=== PATIENT | female | born 1970 | race Caucasian/White ===

== ENCOUNTER 2017-01-06 10:34 | Day surgery (SDC) | payer BC ==
[2017-01-05 09:18] VITALS: BMI 30.9
--- NOTE | 2017-01-06 09:59 | P.GSHP ---
History of Present Illness H&P Date: 01/06/17 Chief Complaint: GERD, abdominal pain Patient here today for upper endoscopy. She's been having complaints of upper abdominal pain and reflux. Mild dysphagia. She did have a prior esophagram for evaluation of dysphagia and 2014 which was normal. Past Medical History Past Medical History: No Reported History History of Any Multi-Drug Resistant Organisms: None Reported Past Surgical History: Cholecystectomy, Orthopedic Surgery Additional Past Surgical History / Comment(s): colon resection, bunionectomy, spurs; EGD Past Anesthesia/Blood Transfusion Reactions: No Reported Reaction Smoking Status: Current every day smoker - Past Family History Father Family Medical History: Deep Vein Thrombosis (DVT) Sister(s) Family Medical History: Cancer Medications and Allergies Home Medications Medication Instructions Recorded Confirmed Type Calcium Carbonate [Tums] 1,500 - 2,000 mg PO DAILY PRN 05/17/16 01/05/17 History HYDROcodone/APAP 5-325MG [[place] 1 tab PO Q4H PRN 05/17/16 01/05/17 History 5-325] Pantoprazole Sodium [Protonix] 40 mg PO BID 05/17/16 01/05/17 History Diclofenac Potassium [Cataflam] 50 mg PO BID 01/05/17 01/05/17 History Magnesium 200 mg PO DAILY 01/05/17 01/05/17 History Phentermine HCl [Adipex-P] 37.5 mg PO QAM 01/05/17 01/05/17 History Zinc 50 mg PO DAILY 01/05/17 01/05/17 History Allergies Allergy/AdvReac Type Severity Reaction Status Date / Time No Known Allergies Allergy Verified 01/05/17 09:10 Surgical - Exam Physical exam: General: Well-developed, well-nourished HEENT: Normocephalic, sclerae nonicteric Abdomen: Nontender, nondistended Extremities: No edema Neuro: Alert and oriented Assessment and Plan (1) GERD (gastroesophageal reflux disease) Narrative/Plan: Will proceed with upper endoscopy at this time. Status: Acute
[~2017-01-06 10:34] MED LIST: LACTATED RINGERS 1,000 ML IV SCH
[2017-01-06] MEDS ORDERED: LIDOCAINE 1% 20 ML VIAL (10MG/ML) FOR IV START INTRADERMA ONE (10:42)
[2017-01-06 10:49] VITALS: RESP 16; TEMP 97.7
[2017-01-06] MEDS ORDERED: PROPOFOL 10 MG/ML 20 ML VIAL IV ONE (10:57)
--- NOTE | 2017-01-06 11:09 | P.PCN ---
Date of Procedure: 01/06/17 Preoperative Diagnosis: Postoperative Diagnosis: Procedure(s) Performed: Preoperative Dx: Abdominal pain, GERD Postoperative Dx: Mild gastritis, small hiatal hernia Procedure: EGD with Bx Anesthesia: Sedation Endoscopist: Dr. Sheth Specimens: Antrum, body Endoscopic Procedure: The patient was on the endoscopy table in the left decubitus position. The Olympus gastroscope was inserted into the oropharynx and passed under direct visualization to the region of the third portion of the duodenum. From that point the scope was slowly withdrawn inspecting all surfaces carefully. There were no neoplastic inflammatory or polypoid lesions throughout the duodenum. The pylorus was widely patent. The stomach was carefully inspected. There was mild gastritis present. A biopsy of the mid body of the stomach took place where there was some thickened rugae. A biopsy of the antrum took place to rule out H. pylori. Retroflexion revealed a small sliding hiatal hernia. The esophagus was then carefully examined. There were no neoplastic inflammatory or polypoid lesions throughout the visualized esophagus. The patient was then taken to the recovery room in stable condition per anesthesia guidelines. Recommendations: Continue antiacid therapy. Await biopsy results. Implants: Indications for Procedure: Operative Findings: Description of Procedure:
[2017-01-06 11:43] VITALS: PULSE 64
[2017-01-06 11:56] VITALS: BP 118/84
== END 2017-01-06 12:10 | disposition home or self-care (01) ==
LOC: ORWHC2ENDO 10:34
PROVIDERS: ATTEND Surgery
DX: K29.50 Unspecified chronic gastritis without bleeding (principal); K44.9 Diaphragmatic hernia without obstruction or gangrene; K21.9 Gastro-esophageal reflux disease without esophagitis; F17.200 Nicotine dependence, unspecified, uncomplicated; Z79.899 Other long term (current) drug therapy
CPT/HCPCS: 81025; 88305; 88342; 43239; J2704

== ENCOUNTER → 2017-04-26 | Outpatient (CLI) | payer BC ==
--- NOTE | 2017-04-26 13:57 | US ---
EXAMINATION TYPE: US kidneys/renal and bladder DATE OF EXAM: 04/26/2017 COMPARISON: CT 2012, US 2012 CLINICAL HISTORY: Flank Pain R10.9. Patient stated has RUQ and LUQ rib pain and mid spine pain; gallb ladder removed EXAM MEASUREMENTS: Right Kidney: 10.0 x 4.5 x 4.0 cm Left Kidney: 9.7 x 4.4 x 5.3 cm Post Void Residual Volume: not assessed as patient not prepped with full bladder Right Kidney: No hydronephrosis or masses seen Left Kidney: No hydronephrosis or masses seen Bladder: minimally distended Bilateral Jets seen: No, not after 3 minute observation IMPRESSION: No evidence of hydronephrosis or nephrolithiasis within either kidney. Urinary bladder is incompletel y distended and is therefore suboptimally evaluated.
== END ==
LOC: RADUSWWP 12:13
PROVIDERS: ATTEND Family Medicine
DX: R10.9 Unspecified abdominal pain (principal)
CPT/HCPCS: 76770

== ENCOUNTER 2018-05-09 16:03 | Emergency (ER) | payer BC, OTHER ==
[2018-05-09 16:07] VITALS: RESP 20
[2018-05-09] MEDS ORDERED: diphenhydrAMINE 50 MG/ML 1 ML VIAL IVP STA (16:34)
[2018-05-09] MEDS ORDERED: SODIUM CHLORIDE 0.9% 1,000 ML IV STA (16:34)
[2018-05-09] MEDS ORDERED: METOCLOPRAMIDE 5 MG/ML 2 ML VIAL IVP STA (16:34)
[2018-05-09] MEDS ORDERED: FAMOTIDINE 20 MG/2 ML VIAL IV STA (16:34)
[2018-05-09 17:10] LABS: Appearance,Urine Clear (Clear); Bacteria,Urine Rare /hpf; Basophils % (A) 0 %; Bilirubin,Urine Negative (Negative); Blood,Urine Negative (Negative); Color,Urine Light Yellow; Eosinophils # (A) 0.2 k/uL (0-0.7); Eosinophils % (A) 1 %; Glucose,Urine (UA) Negative (Negative); HGB 16.3 gm/dL (11.4-16.0); Ketones,Urine Negative (Negative); Leukocyte Esterase,Urine Trace (Negative); Lymphocytes # (A) 1.6 k/uL (1.0-4.8); Lymphocytes % (A) 9 %; MCH 28.3 pg (25.0-35.0); MCHC 33.4 g/dL (31.0-37.0); MCV 84.8 fL (80.0-100.0); Mean Platelet Volume 8.5; Monocytes # (A) 0.7 k/uL (0-1.0); Monocytes % (A) 4 %; Mucus,Urine Rare /hpf; Neutrophils % (A) 86 %; Nitrite,Urine Negative (Negative); PH, Urine 6.5 (5.0-8.0); Platelet Count 300 k/uL (150-450); Protein,Urine Negative (Negative); RBC 5.77 m/uL (3.80-5.40); RBC,Urine 1 /hpf (0-5); RDW 13.4 % (11.5-15.5); Specific Gravity,Urine 1.006 (1.001-1.035); Squamous Epithelial Cell,Urine 1 /hpf (0-4); Urobilinogen,Urine <2.0 mg/dL (<2.0); WBC 18.6 k/uL (3.8-10.6)
[2018-05-09 17:17] LABS: INR 0.9 (<1.2); Partial Thromboplastin Time 23.4 sec (22.0-30.0); Prothrombin Time 9.5 sec (9.0-12.0)
[2018-05-09 17:22] LABS: ALT 21 U/L (9-52); AST 22 U/L (14-36); Alkaline Phosphatase 85 U/L (38-126); Anion Gap 7 mmol/L; Blood Urea Nitrogen 17 mg/dL (7-17); Calcium 10.9 mg/dL (8.4-10.2); Carbon Dioxide 27 mmol/L (22-30); Chloride 104 mmol/L (98-107); Glucose 112 mg/dL (74-99); Potassium 4.2 mmol/L (3.5-5.1); Sodium 138 mmol/L (137-145); Total Bilirubin 0.5 mg/dL (0.2-1.3); Total Protein 7.5 g/dL (6.3-8.2)
[2018-05-09 17:24] LABS: Creatine Kinase 75 U/L (30-135)
[2018-05-09 17:36] LABS: Creatine Kinase MB 1.2 ng/mL (0.0-2.4); Troponin I <0.012 ng/mL (0.000-0.034)
--- NOTE | 2018-05-09 17:45 | ED ---
General Adult HPI - General Chief complaint: Headache Stated complaint: Headache Time Seen by Provider: 05/09/18 16:13 Source: patient, RN notes reviewed Mode of arrival: ambulatory Limitations: no limitations - History of Present Illness Initial comments: Patient's a 48-year-old female presented to the emergency room today with a chief complaint of possible ALLERGIC reaction. She does admit that she was at her orthopedic doctor yesterday and received steroid injections in her knees bilaterally. She states that after leaving the office she began feeling headache, flushing to her face, and some feelings that her throat was closing. She does admit that she has had increased headache today. Started upfront has radiated to the back. Patient states that she has had headaches similar to this in the past. She states she typically is able to drink caffeine or have a candy bar which usually helps relieve it. She states she's had no success and relieving this headache in the last day. Patient states that she has also been experiencing some chest pain. She states it felt like acid reflux. She did take Tums. She states it didn't improve the symptoms. She states it seems to be coming going. Currently rates headache 02/16. Denies any other complaints at this time. Patient denies any recent fever, chills, shortness of breath, chest pain, back pain, abdominal pain, nausea or vomiting, numbness or tingling , dysuria or hematuria, constipation or diarrhea, visual changes, or any other complaints. - Related Data Home Medications Medication Instructions Recorded Confirmed Calcium Carbonate [Tums] 1,500 - 2,000 mg PO DAILY PRN 05/17/16 01/06/17 HYDROcodone/APAP 5-325MG [[place] 1 tab PO Q4H PRN 05/17/16 01/06/17 5-325] Pantoprazole Sodium [Protonix] 40 mg PO BID 05/17/16 01/06/17 Diclofenac Potassium [Cataflam] 50 mg PO BID 01/05/17 01/06/17 Magnesium 200 mg PO DAILY 01/05/17 01/06/17 Phentermine HCl [Adipex-P] 37.5 mg PO QAM 01/05/17 01/06/17 Zinc 50 mg PO DAILY 01/05/17 01/06/17 Allergies Allergy/AdvReac Type Severity Reaction Status Date / Time No Known Allergies Allergy Verified 05/09/18 16:07 Review of Systems ROS Statement: Those systems with pertinent positive or pertinent negative responses have been documented in the HPI. ROS Other: All systems not noted in ROS Statement are negative. Past Medical History Past Medical History: No Reported History History of Any Multi-Drug Resistant Organisms: None Reported Past Surgical History: Cholecystectomy, Orthopedic Surgery Additional Past Surgical History / Comment(s): colon resection, bunionectomy, spurs; EGD Past Anesthesia/Blood Transfusion Reactions: No Reported Reaction Past Psychological History: No Psychological Hx Reported Smoking Status: Current every day smoker Past Alcohol Use History: None Reported Past Drug Use History: None Reported - Past Family History Father Family Medical History: Deep Vein Thrombosis (DVT) Sister(s) Family Medical History: Cancer General Exam - General Exam Comments Initial Comments: General: The patient is awake and alert, in no distress, and does not appear acutely ill. Eye: Pupils are equal, round and reactive to light. Extra-ocular movements are intact. No nystagmus. There is normal conjunctiva bilaterally. No signs of icterus. Ears, nose, mouth and throat: There are moist mucous membranes and no oral lesions. Neck: The neck is supple, there is no tenderness or JVD. Cardiovascular: There is a regular rate and rhythm. No murmur, rub or gallop is appreciated. Respiratory: Lungs are clear to auscultation, respirations are non-labored, breath sounds are equal. No wheezes, stridor, rales, or rhonchi. Musculoskeletal: Normal ROM, no tenderness. Sensation intact. Strength 5/5. Pulses equal bilaterally 2+. Neurological: A&O x 3. CN II-XII intact, There are no obvious motor or sensory deficits. Coordination appears grossly intact. Speech is normal. Skin: Skin is warm and dry and no rashes or lesions are noted. Psychiatric: Cooperative, appropriate mood & affect, normal judgment. Limitations: no limitations Course Vital Signs 05/09/18 16:05 Temperature 97.8 F Pulse Rate 90 Respiratory 20 Rate Blood Pressure 147/81 O2 Sat by Pulse 98 Oximetry EKG Findings - EKG Comments: EKG Findings:: EKG performed at 1701: Shows normal sinus rhythm at 72 bpm. MS interval 180. QRS 94. QT/QTc 406/444. No acute ST changes. Medical Decision Making - Medical Decision Making Patient's labs been reviewed does show a 2000 white count. Patient did have Kenalog injections in her knees bilaterally. At this time patient is doing well. She states her headache is gone to choose given Reglan, Benadryl, Pepcid for her symptoms. She denies any chest pain currently. EKG shows normal sinus rhythm. Cardiac enzymes negative. She states that she has had a mild cough. Chest x-ray showing no sign of infection or any other acute abnormality. Results were discussed with attending physician Dr. Mercedes who did see patient at bedside. At this time patient's doing well will be discharged home advised to continue Benadryl, Pepcid for symptoms. [place] that symptoms are related to steroid injection that she received yesterday. She is advised that she should return here to the emergency room symptoms increase worsen. - Lab Data Result diagrams: 05/09/18 16:51 05/09/18 16:51 Lab Results 05/09/18 05/09/18 05/09/18 Range/Units 16:51 16:51 16:51 WBC 18.6 H (3.8-10.6) k/uL RBC 5.77 H (3.80-5.40) m/uL Hgb 16.3 H (11.4-16.0) gm/dL Hct 49.0 H (34.0-46.0) % MCV 84.8 (80.0-100.0) fL MCH 28.3 (25.0-35.0) pg MCHC 33.4 (31.0-37.0) g/dL RDW 13.4 (11.5-15.5) % Plt Count 300 (150-450) k/uL Neutrophils % 86 % Lymphocytes % 9 % Monocytes % 4 % Eosinophils % 1 % Basophils % 0 % Neutrophils # 16.0 H (1.3-7.7) k/uL Lymphocytes # 1.6 (1.0-4.8) k/uL Monocytes # 0.7 (0-1.0) k/uL Eosinophils # 0.2 (0-0.7) k/uL Basophils # 0.0 (0-0.2) k/uL PT (9.0-12.0) sec INR (<1.2) APTT (22.0-30.0) sec Sodium 138 (137-145) mmol/L Potassium 4.2 (3.5-5.1) mmol/L Chloride 104 (98-107) mmol/L Carbon Dioxide 27 (22-30) mmol/L Anion Gap 7 mmol/L BUN 17 (7-17) mg/dL Creatinine 0.71 (0.52-1.04) mg/dL Est GFR (CKD-EPI)AfAm >90 (>60 ml/min/1.73 sqM) Est GFR (CKD-EPI)NonAf >90 (>60 ml/min/1.73 sqM) Glucose 112 H (74-99) mg/dL Calcium 10.9 H (8.4-10.2) mg/dL Total Bilirubin 0.5 (0.2-1.3) mg/dL AST 22 (14-36) U/L ALT 21 (9-52) U/L Alkaline Phosphatase 85 (38-126) U/L Total Creatine Kinase 75 (30-135) U/L CK-MB (CK-2) 1.2 (0.0-2.4) ng/mL CK-MB (CK-2) Rel Index 1.6 Troponin I <0.012 (0.000-0.034) ng/mL Total Protein 7.5 (6.3-8.2) g/dL Albumin 4.0 (3.5-5.0) g/dL Urine Color Urine Appearance (Clear) Urine pH (5.0-8.0) Ur Specific [place] (1.001-1.035) Urine Protein (Negative) Urine Glucose (UA) (Negative) Urine Ketones (Negative) Urine Blood (Negative) Urine Nitrite (Negative) Urine Bilirubin (Negative) Urine Urobilinogen (<2.0) mg/dL Ur Leukocyte Esterase (Negative) Urine RBC (0-5) /hpf Urine WBC (0-5) /hpf Ur Squamous Epith Cells (0-4) /hpf Urine Bacteria (None) /hpf Urine Mucus (None) /hpf 05/09/18 05/09/18 Range/Units 16:51 16:51 WBC (3.8-10.6) k/uL RBC (3.80-5.40) m/uL Hgb (11.4-16.0) gm/dL Hct (34.0-46.0) % MCV (80.0-100.0) fL MCH (25.0-35.0) pg MCHC (31.0-37.0) g/dL RDW (11.5-15.5) % Plt Count (150-450) k/uL Neutrophils % % Lymphocytes % % Monocytes % % Eosinophils % % Basophils % % Neutrophils # (1.3-7.7) k/uL Lymphocytes # (1.0-4.8) k/uL Monocytes # (0-1.0) k/uL Eosinophils # (0-0.7) k/uL Basophils # (0-0.2) k/uL PT 9.5 (9.0-12.0) sec INR 0.9 (<1.2) APTT 23.4 (22.0-30.0) sec Sodium (137-145) mmol/L Potassium (3.5-5.1) mmol/L Chloride (98-107) mmol/L Carbon Dioxide (22-30) mmol/L Anion Gap mmol/L BUN (7-17) mg/dL Creatinine (0.52-1.04) mg/dL Est GFR (CKD-EPI)AfAm (>60 ml/min/1.73 sqM) Est GFR (CKD-EPI)NonAf (>60 ml/min/1.73 sqM) Glucose (74-99) mg/dL Calcium (8.4-10.2) mg/dL Total Bilirubin (0.2-1.3) mg/dL AST (14-36) U/L ALT (9-52) U/L Alkaline Phosphatase (38-126) U/L Total Creatine Kinase (30-135) U/L CK-MB (CK-2) (0.0-2.4) ng/mL CK-MB (CK-2) Rel Index Troponin I (0.000-0.034) ng/mL Total Protein (6.3-8.2) g/dL Albumin (3.5-5.0) g/dL Urine Color Light Yellow Urine Appearance Clear (Clear) Urine pH 6.5 (5.0-8.0) Ur Specific [place] 1.006 (1.001-1.035) Urine Protein Negative (Negative) Urine Glucose (UA) Negative (Negative) Urine Ketones Negative (Negative) Urine Blood Negative (Negative) Urine Nitrite Negative (Negative) Urine Bilirubin Negative (Negative) Urine Urobilinogen <2.0 (<2.0) mg/dL Ur Leukocyte Esterase Trace H (Negative) Urine RBC 1 (0-5) /hpf Urine WBC 1 (0-5) /hpf Ur Squamous Epith Cells 1 (0-4) /hpf Urine Bacteria Rare H (None) /hpf Urine Mucus Rare H (None) /hpf Disposition Clinical Impression: Adverse reaction to drug, GERD (gastroesophageal reflux disease), Headache Disposition: HOME SELF-CARE Condition: Good Instructions: Acute Headache (ED) Additional Instructions: Please use Benadryl 1-2 tabs every 6 hours along with Pepcid twice a day as discussed. Please follow-up with family doctor in the next 2 days of symptoms have not improved. Please return to emergency room if the symptoms increase or worsen or for any other concerns. Is patient prescribed a controlled substance at d/c from ED?: No Referrals: Charo Sheth MD [Primary Care Provider] - 1-2 days Time of Disposition: 18:18
--- NOTE | 2018-05-09 17:46 | XR ---
EXAMINATION TYPE: XR chest 2V DATE OF EXAM: 05/09/2018 COMPARISON: 07/24/2014 HISTORY: Headaches TECHNIQUE: Frontal and lateral views of the chest are obtained. FINDINGS: Heart and mediastinum are normal. Lungs are clear. Diaphragm is normal. Bony thorax appear s normal. IMPRESSION: Normal chest. No change.
[2018-05-09 18:32] VITALS: BP 110/83; PULSE 71; TEMP 97.9
== END 2018-05-09 18:25 | disposition home or self-care (01) ==
LOC: EC 16:03
DX: K21.9 Gastro-esophageal reflux disease without esophagitis (principal); T38.0X5A Adverse effect of glucocorticoids and synthetic analogues, initial encounter; R51 Headache; F17.200 Nicotine dependence, unspecified, uncomplicated; Z79.899 Other long term (current) drug therapy; Z90.49 Acquired absence of other specified parts of digestive tract
CPT/HCPCS: 36415; 71046; 80053; 81001; 82550; 82553; 84484; 85025; 85610; 85730; 93005; 96361; 96374; 96375; 99284

== ENCOUNTER → 2020-04-13 | Outpatient (CLI) | payer MEDICAID | END | disposition home or self-care (01) | LOC: LABWHC1 13:02 | PROVIDERS: ATTEND Family Medicine | DX: R05 Cough (principal); R43.0 Anosmia; R06.02 Shortness of breath | CPT/HCPCS: U0003; C9803 ==

== ENCOUNTER → 2020-06-15 | Outpatient (CLI) | payer MEDICAID ==
--- NOTE | 2020-06-15 12:54 | XR ---
EXAMINATION TYPE: XR shoulder limited LT DATE OF EXAM: 06/15/2020 COMPARISON: 03/06/2020 HISTORY: pain in left shoulder TECHNIQUE: Two views are submitted. FINDINGS: The osseous structures are intact. There is no acute fracture or dislocation. The AC joint is maint ained. Calcified density overlying the left humeral head likely in the basis of calcific tendinosis. IMPRESSION: 1. No acute process. Correlate for calcific tendinosis. If clinically warranted MRI could be obtaindonnie pinedo
== END | disposition home or self-care (01) ==
LOC: RADXRMAIN 12:26
PROVIDERS: ATTEND Family Medicine
DX: M25.512 Pain in left shoulder (principal)

== ENCOUNTER → 2020-11-26 | Outpatient (CLI) | payer MEDICAID ==
--- NOTE | 2020-12-01 09:43 | MM ---
Reason for exam: screening (asymptomatic). Last mammogram was performed 5 years and 8 months ago. History: Patient is postmenopausal. Physical Findings: A clinical breast exam by your physician is recommended on an annual basis and results should be correlated with mammographic findings. MG Screening Mammo w CAD Bilateral CC and MLO view(s) were taken. Prior study comparison: March 19, 2015, bilateral MG screening mammo w CAD. The breast tissue is heterogeneously dense. This may lower the sensitivity of mammography. There is no discrete abnormality. No significant changes when compared with prior studies. ASSESSMENT: Negative, BI-RAD 1 RECOMMENDATION: Routine screening mammogram of both breasts in 1 year.
== END | disposition home or self-care (01) ==
LOC: RADMAMWWP 11:17
PROVIDERS: ATTEND Family Medicine
DX: Z12.31 Encounter for screening mammogram for malignant neoplasm of breast (principal); Z78.0 Asymptomatic menopausal state
CPT/HCPCS: 77067

== ENCOUNTER → 2021-09-09 | Outpatient (CLI) | payer MEDICAID ==
--- NOTE | 2021-09-09 09:48 | CT ---
EXAMINATION TYPE: CT abdomen pelvis w con DATE OF EXAM: 09/09/2021 COMPARISON: CT dated 03/28/2013 HISTORY: abdominal pain and change in bowel x2 months CT DLP: 1004.3 mGycm Automated exposure control for dose reduction was used. TECHNIQUE: Helical acquisition of images was performed from the lung bases through the pelvis. CONTRAST: Performed without Oral Contrast and with IV Contrast, patient injected with 100 mL of Isovue 300. FINDINGS: LUNG BASES: No significant abnormality is appreciated. LIVER/GB: Suspected hepatic steatosis. No definite hepatic focal lesion. Previous cholecystectomy. Sl ightly prominent CBD likely related to post cholecystectomy status, stable. PANCREAS: No significant abnormality is seen. SPLEEN: No significant abnormality is seen. ADRENALS: No significant abnormality is seen. KIDNEYS: No significant abnormality is seen. FREE AIR: No free air is visualized. RETROPERITONEAL ADENOPATHY: No pathologically enlarged REPRODUCTIVE ORGANS: No gross uterine or adnexal mass. URINARY BLADDER: Incompletely distended with slightly thickened wall. PELVIC ADENOPATHY: No pathologically enlarged OSSEOUS STRUCTURES: Degenerative changes at L5-S1 level. BOWEL: Slightly thickened gastric wall probably due to incomplete distention. Further gastroscopy ca n be considered. Unremarkable duodenum and small bowel. Unremarkable colonic anastomosis in the pelvi s. No gross colonic mass however a small lesion cannot be excluded. Normal appendix. OTHER: Scattered arterial atherosclerotic calcifications. Left fat containing spigelian hernia seen b etween the layers of the anterior abdominal wall muscles in the left lower quadrant. Overlying 4.1 cm tract like soft tissue thickening within the subcutaneous fat, at the site of previous colostomy, pl ease correlate clinically for chronic sinus/fistula. IMPRESSION: Grossly unremarkable colonic anastomosis in the pelvis. Correlation with coloscopy can be considered. Fat-containing spigelian hernia in the left lower quadrant deep to the site of previous colostomy. T ract like soft tissue thickening at the site of the previous colostomy as described above, please cor relate for chronic fistula/sinus. Other incidental findings as detailed above.
== END | disposition home or self-care (01) ==
LOC: RADCTMAIN 08:57
PROVIDERS: ATTEND Family Medicine
DX: K63.89 Other specified diseases of intestine (principal); K43.9 Ventral hernia without obstruction or gangrene; Z93.3 Colostomy status
CPT/HCPCS: 74177; Q9967

== ENCOUNTER → 2022-10-05 | Outpatient (CLI) | payer BC, OTHER ==
--- NOTE | 2022-10-06 07:43 | US ---
EXAMINATION TYPE: US thyroid st tissue head/neck DATE OF EXAM: 10/05/2022 COMPARISON: NONE CLINICAL HISTORY: E04.1 SINGLE THYROID NODULE. Thyroid nodule on meds. GLAND SIZE: Right Lobe: 5.3 x 2.3 x 2.6 cm Overall Parenchyma: heterogenous Left Lobe: 5.5 x 1.1 x 1.5 cm Overall Parenchyma: heterogeneous Isthmus Thickness: 0.5 cm NODULES RIGHT: # of nodules measured on right: <1cm nodule seen lateral. LEFT: # of nodules measured on left: 1 1. 15 X 0.7 x 1.0 cm, lower , cystic or almost completely cystic, anechoic nodule, which is wider t sumner tall, with smooth margins, without echogenic foci. Prior size: No previous. TIRADS Score: 0 TIRADS Category 1: Benign Composition: Cystic or almost completely cystic (0 points). Recommendation: No FNA ISTHMUS: # of nodules measured in the isthmus: 0 Bilateral neck scanned, no evidence of lymphadenopathy. IMPRESSION: 1. Heterogenous appearance of thyroid gland correlate with serum occurs for thyroiditis. 2. Cystic-appearing thyroid nodules no suspicious thyroid nodules visualized.
== END | disposition home or self-care (01) ==
LOC: RADUSWWP 15:35
PROVIDERS: ATTEND Family Medicine
DX: E04.2 Nontoxic multinodular goiter (principal)
CPT/HCPCS: 76536

== ENCOUNTER 2022-10-17 07:24 | Day surgery (SDC) | payer BC, OTHER ==
--- NOTE | 2022-10-17 07:12 | P.GSHP ---
History of Present Illness H&P Date: 10/17/22 Chief Complaint: Abdominal wall infection 52-year-old female with chronic recurring infection at previous ostomy site. Patient has a sinus opening there frequently she says. CAT scan showed inflammatory changes above the level of the fascia. CAT scan also shows a herniation through a portion of the lateral abdominal wall musculature. This is asymptomatic and is not penetrating through the final layer of fascial closure. Past Medical History Past Medical History: COPD, GERD/Reflux, Hyperlipidemia, Osteoarthritis (OA), Skin Disorder, Thyroid Disorder Additional Past Medical History / Comment(s): Blister at prior stoma site, thyroid nodule found on recent cat scan, diverticulitis, spurs bilateral heels, rosacea. History of Any Multi-Drug Resistant Organisms: None Reported Past Surgical History: Cholecystectomy, Orthopedic Surgery Additional Past Surgical History / Comment(s): Colon resection/colostomy with reversal, EGD, colonoscopies, R foot bunionectomy, spurs removed from heels; bilateral knee injections (gel injections). Past Anesthesia/Blood Transfusion Reactions: No Reported Reaction Additional Past Anesthesia/Blood Transfusion Reaction / Comment(s): Pt has never received blood. Smoking Status: Current every day smoker - Past Family History Father Family Medical History: Coronary Artery Disease (CAD), Myocardial Infarction (ME) Additional Family Medical History / Comment(s): from "fluid on heart" Sister(s) Family Medical History: Cancer Additional Family Medical History / Comment(s): Cervical cancer Medications and Allergies Home Medications Medication Instructions Recorded Confirmed Type Calcium Carbonate [Tums] 1,500 - 2,000 mg PO DAILY PRN 05/17/16 10/12/22 History Pantoprazole Sodium [Protonix] 40 mg PO QAM 05/17/16 10/12/22 History Magnesium 400 mg PO BID 01/05/17 10/12/22 History Ezetimibe [Zetia] 10 mg PO QAM 10/12/22 10/12/22 History Famotidine 40 mg PO TID-W/MEALS PRN 10/12/22 10/12/22 History Levothyroxine Sodium [Synthroid] 0.05 mcg PO QAM 10/12/22 10/12/22 History Allergies Allergy/AdvReac Type Severity Reaction Status Date / Time acetaminophen [From Vicodin] Allergy Unknown Nausea & Verified 10/12/22 14:40 Vomiting hydrocodone [From Vicodin] Allergy Unknown Nausea & Verified 10/12/22 14:40 Vomiting Surgical - Exam Physical exam: General: Well-developed, well-nourished HEENT: Normocephalic, sclerae nonicteric Abdomen: Nontender, nondistended, induration at ostomy site with small nodularity and tenderness Extremities: No edema Neuro: Alert and oriented Assessment and Plan (1) Recurrent abdominal wall fistula Narrative/Plan: 52-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 Likely related to stitch abscess. We'll proceed with exploration of the abdominal wall at that location with anticipated removal foreign body. So bleeding, infection, wound formation, drain placement, recurrent symptoms, hernia all reviewed. She understands and wishes to proceed. Status: Acute Code(s): K63.2 - FISTULA OF INTESTINE SNOMED Code(s): 585013108
[~2022-10-17 07:24] MED LIST changes: +ACETAMINOPHEN TAB 500 MG TAB PO PRN; +DEXAMETHASONE SOD PHOSPHATE 4 MG/ML 1 ML VIAL IV ONE; +HEPARIN SODIUM,PORCINE/PF 5,000 UNIT/0.5 ML SYRINGE SQ PRN; +LIDOCAINE 1% (10MG/ML) FOR IV START INTRADERMA PRN; +ONDANSETRON 4 MG/2 ML VIAL IVP ONE; +Pre Op ABX Message 1 EACH MISC MISCELLANE ONE; +fentaNYL (PF) 50 MCG/ML 2 ML AMP IV PRN
[2022-10-17 08:13] LABS: Glucose,Whole Blood 100 mg/dL (70-110)
[2022-10-17] MEDS ORDERED: SUCCINYLCHOLINE CHLORIDE 200 MG/10 ML VIAL IV ONE (08:29)
[2022-10-17] MEDS ORDERED: ALBUTEROL INHALER 60 PUFF/8 GM INHALER (MHU) INHALATION ONE (08:29)
[2022-10-17] MEDS ORDERED: fentaNYL (PF) 50 MCG/ML 2 ML AMP ONE (08:29)
[2022-10-17] MEDS ORDERED: MIDAZOLAM 2 MG/2 ML VIAL ONE (08:29)
[2022-10-17] MEDS ORDERED: LIDOCAINE 2% INJ 20 MG/ML (2 ML VIAL) ONE (08:29)
[2022-10-17] MEDS ORDERED: PROPOFOL 10 MG/ML 20 ML VIAL IV ONE (08:29)
[2022-10-17] MEDS ORDERED: BUPIVACAIN-EPI 0.25%-1:200,000 30 ML VIAL SQ ONE (08:32)
[2022-10-17] MEDS ORDERED: ceFAZolin 1,000 MG VIAL IVPB ONE (08:34)
[2022-10-17 09:35] VITALS: TEMP 97.2
[2022-10-17] MEDS ORDERED: NALOXONE 0.4 MG/ML 1 ML VIAL IV PRN (09:37)
[2022-10-17] MEDS ORDERED: traMADol 50 MG TAB PO PRN (09:37)
--- NOTE | 2022-10-17 09:40 | P.OP ---
Date of Procedure: 10/17/22 Procedure(s) Performed: PREOPERATIVE DIAGNOSIS: Abdominal wall foreign body POSTOPERATIVE DIAGNOSIS: Same PROCEDURE: Exploration and removal abdominal wall foreign body SURGEON: Meryl EBL: Susie Damon ANESTHESIA: Gen. COMPLICATIONS: None OPERATIVE PROCEDURE: Patient place in the operative table in the supine posit ion. The patient was placed under general anesthesia. An elliptical incision was made around the indurated portion of skin at the previous ostomy site. The subcutaneous tissues were dissected down to the level of the fascia. There was no evidence of any infection or purulence or sinus connection to the fascial level. This portion of tissue was removed from the field. The area was irrigated with saline. No bleeding was seen. The subcutaneous tissues were closed using interrupted 20 and 3-0 Vicryl sutures. The skin was closed using a running 4-0 Monocryl stitch. Skin glue was then applied. Following that on the back table the portion of skin and subcutaneous fat with induration was incised and a single purulent Ethibond stitch was identified. This appeared to be the source of the recurrent infection. Cultures were taken from this. The specimen was passed off to pathology. DISPOSITION: Stable to recovery room
[2022-10-17 10:26] VITALS: RESP 14
[2022-10-17] MEDS ORDERED: traMADol 50 MG TAB PO ONE (10:56)
[2022-10-17 11:15] VITALS: BP 114/74; PULSE 59
== END 2022-10-17 11:29 | disposition home or self-care (01) ==
LOC: OR 07:24
PROVIDERS: ATTEND Surgery
DX: K66.8 Other specified disorders of peritoneum (principal); J44.9 Chronic obstructive pulmonary disease, unspecified; K21.9 Gastro-esophageal reflux disease without esophagitis; E78.5 Hyperlipidemia, unspecified; E03.9 Hypothyroidism, unspecified; F17.200 Nicotine dependence, unspecified, uncomplicated; F17.210 Nicotine dependence, cigarettes, uncomplicated; Z90.49 Acquired absence of other specified parts of digestive tract; Z98.890 Other specified postprocedural states; Z82.49 Family history of ischemic heart disease and other diseases of the circulatory system; Z88.5 Allergy status to narcotic agent; Z79.899 Other long term (current) drug therapy; Z79.890 Hormone replacement therapy
CPT/HCPCS: 22903; 88304; 87070; 87205; 87075; J2250; J0330; J1100; J2405; J0690; J3010; J2704; J1644; J2001

== ENCOUNTER → 2023-06-08 | Outpatient (CLI) | payer OTHER ==
--- NOTE | 2023-06-09 11:41 | MM ---
Reason for Exam: Screening (asymptomatic). Last mammogram was performed 2 year(s) and 6 month(s) ago. Patient History: Menarche at age 14. First Full-Term at age 21. Postmenopausal. Risk Values: Karoline 5 year model risk: 0.9%. NCI Lifetime model risk: 7.0%. Prior Study Comparison: 03/19/2015 Bilateral Screening Mammogram, [facility]. 11/26/2020 Bilateral Screening Mammogram, [facility]. Tissue Density: There are scattered fibroglandular densities. Findings: Analyzed By CAD. There is no suspicious group of microcalcifications or new suspicious mass. Overall Assessment: Negative, BI-RAD 1 Management: Screening Mammogram of both breasts in [address] [facility] will attempt to contact patient to return for supplemental views and ultrasound if indicated. Patient should continue monthly self-breast exams. A clinical breast exam by your physician is recommended on an annual basis. This exam should not preclude additional follow-up of suspicious palpable abnormalities. Note on Karoline scores and lifetime risk: 1. A Karoline score greater than 3% is considered moderate risk. If this is the case, consider specialist referral to assess eligibility for a risk reducing agent. 2. If overall lifetime risk for the development of breast cancer is 20% or higher, the patient may qualify for future screening with alternating mammogram and breast MRI. Electronically signed and approved by: Adonis Nelson DO
== END | disposition home or self-care (01) ==
LOC: RADMAMWWP 13:12
PROVIDERS: ATTEND Family Medicine
DX: Z12.31 Encounter for screening mammogram for malignant neoplasm of breast (principal); Z78.0 Asymptomatic menopausal state
CPT/HCPCS: 77067

== ENCOUNTER → 2023-10-26 | Outpatient (CLI) | payer OTHER ==
--- NOTE | 2023-10-26 18:53 | US ---
EXAMINATION TYPE: US thyroid st tissue head/neck DATE OF EXAM: 10/26/2023 COMPARISON: US 10/05/2022 CLINICAL INDICATION: Female, 53 years old with history of R22.0 LOCALIZED SWELLING, MASS AND LUMP, HE AD; Patient is on thyroid medication. Swelling. GLAND SIZE: Right Lobe: 5.2 x 2.9 x 2.0 cm Overall Parenchyma: heterogeneous Left Lobe: 5.3 x 1.5 x 1.2 cm Overall Parenchyma: heterogeneous Isthmus Thickness: 0.29 cm NODULES RIGHT: # of nodules measured on right: 0 LEFT: # of nodules measured on left: 1 1. 2.0 X 1.1 x 0.9 cm, lower lateral, cystic or almost completely cystic, anechoic nodule, which is wider than tall, with smooth margins, without echogenic foci. Prior size: 1.5 x 1.0 x 0.7 cm ISTHMUS: # of nodules measured in the isthmus: 0 Bilateral and midline neck scanned, hypoechoic area seen within the midline-slightly right neck just superior to the thyroid: 0.5 x 0.8 x 0.4 cm. IMPRESSION: 1. No thyromegaly. 2. No right thyroid nodules. 3. Left thyroid cyst which has increased mildly in the interval. 2017 ACR TI-RADS LEVEL: 0 *Highest TI-RADS level nodule reported
== END | disposition home or self-care (01) ==
LOC: RADUSWWP 16:06
PROVIDERS: ATTEND Family Medicine
DX: R22.0 Localized swelling, mass and lump, head (principal); E04.1 Nontoxic single thyroid nodule
CPT/HCPCS: 76536

== ENCOUNTER → 2024-03-15 | Outpatient (CLI) | payer OTHER ==
--- NOTE | 2024-03-15 14:33 | USB ---
Reason for Exam: Clinical finding. Patient History: Menarche at age 14. First Full-Term at age 21. Postmenopausal. Risk Values: Karoline 5 year model risk: 0.9%. NCI Lifetime model risk: 6.9%. Technique: Method: Targeted. Prior Study Comparison: 03/19/2015 Bilateral Screening Mammogram, [facility]. 11/26/2020 Bilateral Screening Mammogram, [facility]. 06/08/2023 Bilateral MG screening mammo w CAD, [facility]. Findings: The lateral section of the breast of the right breast was scanned. A complete US of area of concern 8 7 9:00 position right breast were reviewed. No solid or cystic masses are identified.. Overall Assessment: Benign, BI-RAD 2 Management: Screening Mammogram of both breasts in 1 year. A clinical breast exam by your physician is recommended on an annual basis and results should be correlated with mammographic findings. This exam should not preclude additional follow-up of suspicious palpable abnormalities. Results were given to the patient verbally at the time of exam. Electronically signed and approved by: Zeyad Andrade M.D. Radiologis
--- NOTE | 2024-03-18 08:11 | MM ---
Reason for Exam: Clinical finding. Last screening mammogram was performed 10 month(s) ago. Indicated Problems: Pain of the right side (Focal) for 2 Year(s). Patient History: Menarche at age 14. First Full-Term at age 21. Postmenopausal. Risk Values: Karoline 5 year model risk: 0.9%. NCI Lifetime model risk: 6.9%. Prior Study Comparison: 03/19/2015 Bilateral Screening Mammogram, [facility]. 11/26/2020 Bilateral Screening Mammogram, [facility]. 06/08/2023 Bilateral MG screening mammo w CAD, [facility]. Tissue Density: Right: The breasts are heterogeneously dense, which may obscure small masses. Findings: Analyzed By CAD. No dominant mass or architectural distortion. No suspicious grouped calcifications. Stable benign-appearing lymph nodes axilla. Overall Assessment: Benign, BI-RAD 2 Management: Screening Mammogram of both breasts in 1 year. Results were given to the patient verbally at the time of exam. Patient should continue monthly self-breast exams. A clinical breast exam by your physician is recommended on an annual basis. This exam should not preclude additional follow-up of suspicious palpable abnormalities. Note on Karoline scores and lifetime risk: 1. A Karoline score greater than 3% is considered moderate risk. If this is the case, consider specialist referral to assess eligibility for a risk reducing agent. 2. If overall lifetime risk for the development of breast cancer is 20% or higher, the patient may qualify for future screening with alternating mammogram and breast MRI. Electronically signed and approved by: Zeyad Andrade M.D. Radiologis
== END | disposition home or self-care (01) ==
LOC: RADMAMWWP 13:23
PROVIDERS: ATTEND Student in an Organized Health Care Education/Training Program
DX: N64.4 Mastodynia
CPT/HCPCS: 77061; 77065

== ENCOUNTER → 2024-06-10 | Outpatient (CLI) | payer OTHER ==
[2024-06-10 15:58] LABS: ALT 16 U/L (8-44); AST 26 U/L (13-35); Albumin 4.2 g/dL (3.8-4.9); Alkaline Phosphatase 79 U/L (41-126); Bilirubin, Conjugated <0.20 mg/dL (0.20-0.40); Bilirubin,Unconjugated >0.30 mg/dL (0.20-1.00); Chol/HDL Ratio 6.12 Ratio; Globulin 2.8 g/dL (1.6-3.3); LDL Cholesterol,Calculated 223.3 mg/dL (0.0-131.0); Total Bilirubin 0.5 mg/dL (0.3-1.2)
== END | disposition home or self-care (01) ==
LOC: LABWHC1 10:17
PROVIDERS: ATTEND Internal Medicine Cardiovascular Disease
DX: E78.2 Mixed hyperlipidemia (principal)
CPT/HCPCS: 36415; 80061; 80076

== ENCOUNTER → 2024-06-25 | Outpatient (CLI) | payer OTHER ==
[2024-06-25 16:26] LABS: Basophils # (A) 0.08 X 10*3/uL (0.00-0.10); Basophils % (A) 1.1 %; Eosinophils # (A) 0.26 X 10*3/uL (0.04-0.35); Eosinophils % (A) 3.7 %; HGB 16.2 g/dL (12.0-15.0); Lymphocytes # (A) 2.26 X 10*3/uL (0.90-5.00); MCH 26.9 pg (27.0-32.0); MCHC 30.6 g/dL (32.0-37.0); Mean Platelet Volume 12.9 FL (9.5-12.2); Monocytes # (A) 0.72 X 10*3/uL (0.20-1.00); Monocytes % (A) 10.2 %; NRBC Per 100 WBC 0 X 10*3/uL (0.00-0.01); Neutrophils # (A) 3.72 X 10*3/uL (1.80-7.70); Neutrophils % (A) 52.7 %; Platelet Count 261 X 10*3/uL (140-440); RBC 6.02 X 10*6/uL (4.10-5.20); RDW 13.9 % (11.5-14.5); WBC 7.06 X 10*3/uL (4.50-10.00)
[2024-06-25 17:03] LABS: T4, Free (Free Thyroxine) 0.74 ng/dL (0.80-1.80)
== END | disposition home or self-care (01) ==
LOC: LABWHC1 10:42
PROVIDERS: ATTEND Dermatology MOHS-Micrographic Surgery
DX: L65.9 Nonscarring hair loss, unspecified (principal)
CPT/HCPCS: 36415; 82306; 82652; 83540; 84439; 84443; 85025